=== PATIENT | female | born 1995 | race Caucasian/White ===

== ENCOUNTER 2017-09-14 18:50 | Emergency (ER) | payer BC ==
[~2017-09-14] VITALS: Ht 165.1 cm; Wt 75.6 kg
[2017-09-14 19:01] VITALS: BP 148/88; TEMP 36.9; Ht 165.1 cm; Wt 75.6 kg
[2017-09-14] MEDS ORDERED: LIDO/EPINEPHRINE/SOD BICARB 20 ML VIAL INFIL ONE (19:15)
--- NOTE | 2017-09-14 19:20 | EMERGENCY ROOM VISIT NOTE ---
History Report prepared by Antonio: Eliseo Kendrick Under the Supervision of: Dr. Mandeep Charles M.D. First contact with patient: 19:07 Chief Complaint: OTHER COMPLAINT Stated Complaint: TAILBONE PAIN History of Present Illness The patient is a 22 year old female who presents to the Emergency Room with complaints of worsening tailbone pain for the past two and a half weeks. The patient states that she fell two and a half weeks ago onto her tailbone, and then it started to get better. However, she states that she drove ten hours to [place] a few days ago, and it worsened again. She additionally states that she was having trouble walking and sitting yesterday, and she has been having worse pain today. The patient states that it looks like there is a cyst in this area. She denies any fevers, chills, urinary symptoms, and pain with bowel movements. The patient denies any past medical history. Source of History: patient Onset: two and a half weeks ago Position: other (tailbone) Quality: other (cyst) Timing: worsening Associated Symptoms: No fevers, No chills, No urinary symptoms Review of Systems See HPI for pertinent positives & negatives. A total of 6 systems reviewed and were otherwise negative. Past Medical & Surgical Medical Problems: (1) No Known Active Medical Problems Family History Patient reports no known family medical history. Social History Smoking Status: Never Smoker Marital Status: single Housing Status: lives with roommate Occupation Status: [employer] student Current/Historical Medications Scheduled Amoxicillin & Pot Clavulanate (Augmentin 875-125 mg), 875 MG PO BID Budesonide/Formoterol Fumarate (Symbicort 160/4.5 Inhaler ), 2 PUFFS INH BID Dexmethylphenidate Hcl (Focalin), 1 TAB PO DAILY Isotretinoin (Claravis), 40 MG PO DAILY Loratadine (Claritin), 10 MG PO DAILY Methylphenidate Hcl (Concerta), 36 MG PO DAILY Montelukast Sodium (Singulair), 10 MG PO DAILY Physical Exam Vital Signs Date Time Temp Pulse Resp B/P (MAP) Pulse Ox O2 Delivery O2 Flow Rate FiO2 09/14/17 19:01 36.9 98 16 148/88 97 Room Air Physical Exam GENERAL: Sitting on the stretcher in no distress. NEURO: Awake, alert, no focal or motor deficits. Oriented x3 BUTTOCK: There is a 3cm erythematous, tender pilonidal abscess to the superior buttock crease. Scant pus-like drainage noted. Medical Decision & Procedures Procedure Incision & Drainage Indication: Abscess. Location: buttock crease Verbal consent was obtained after the risks and benefits were explained, including but not limited to bleeding, scarring, infection, pain, and bone/joint /nerve damage. At this time, the risks of the procedure are less than the risks of NOT performing the procedure. A time out was taken and the correct patient and site identified. The skin was prepped with betadine and a sterile field set. The wound was anesthetized with 6 ml of 1% lidocaine with epinephrine. The abscess cavity was entered with a number 11 blade and purulent material expressed. Copious irrigation was performed using saline. The wound was explored for foreign bodies and none found. Debridement was not performed. Packing placed and a sterile dressing applied. Detailed wound care instructions and signs and symptoms of worsening infection reviewed with the patient. No complications and the patient tolerated the procedure well. ED Course 190: The patient was evaluated in room C9. A complete history and physical exam was performed. 1916: Buffered Xylocaine/ Epinephrine 1% 6ml INFIL. 1933: I performed an Incision & Drainage on the patient. I discussed the discharge instructions with her. She will be discharged home. 2000: Augmentin Tab 875mg PO Medical Decision Differential Diagnoses include: Cellulitis, tailbone injury, contusion, and pilonidal abscess. Patient presents with buttock/tailbone pain. She had fallen 2 and half weeks ago however, the pain from that seemed to be getting better. For a few days now she's had increased pain and she has noticed an area of drainage that appears cystic. On exam, she has a pilonidal abscess. I talked to her about drainage, she did consent. The procedure was performed without difficulty. Patient is being discharged to return for packing removal in 2 days. She was given a dose of oral Augmentin and was given a prescription for 1 week of this medication. Sitz baths were encouraged. Impression Primary Impression: Pilonidal abscess Scribe Attestation The scribe's documentation has been prepared under my direction and personally reviewed by me in its entirety. I confirm that the note above accurately reflects all work, treatment, procedures, and medical decision making performed by me. Departure Information Dispostion Home / Self-Care Prescriptions Amoxicillin & Pot Clavulanate (Augmentin 875-125 mg) 1 Tab Tab 875 MG PO BID for 7 Days, #14 TAB Prov: Mandeep Charles M.D. 09/14/17 Forms HOME CARE DOCUMENTATION FORM, IMPORTANT VISIT INFORMATION Patient Instructions My [facility] Additional Instructions augmentin 2x per day for 1 week warm sitz bath soaks 3x per day return in 2 days for packing removal return sooner for fever or worsening symptoms motrin/tylenol for pain
[2017-09-14] MEDS ORDERED: MONT1TAB3 PO (19:32)
[2017-09-14] MEDS ORDERED: CLR10 PO (19:32)
[2017-09-14] MEDS ORDERED: SYMIN160 INH (19:32)
[2017-09-14] MEDS ORDERED: DEXM10TA PO (19:32)
[2017-09-14] MEDS ORDERED: CNC/36 PO (19:32)
[2017-09-14] MEDS ORDERED: ISOT40CA PO (19:32)
[2017-09-14] MEDS ORDERED: AMOX875T PO (19:50)
[2017-09-14] MEDS ORDERED: AMOXICILLIN/CLAVULANATE TAB 875 MG TAB PO ONE (20:00)
[2017-09-14 20:10] VITALS: PULSE 87; O2SAT 98
== END 2017-09-14 20:13 | disposition home or self-care (01) ==
LOC: C.EDB 18:52 → C.EDC 20:13
DX: L05.01 Pilonidal cyst with abscess (principal); Z79.899 Other long term (current) drug therapy